=== PATIENT | male | born 1995 | race Caucasian/White ===

== ENCOUNTER → 2019-06-22 13:34 | Outpatient (CLI) | payer BC, SELFPAY | PROVIDERS: Visit Provider Physician Assistant | DX: J02.9 Acute pharyngitis, unspecified (principal) | CPT/HCPCS: 87070; 87077 ==

== ENCOUNTER → 2019-07-30 17:06 | Outpatient (ROUT) | payer BC, SELFPAY ==
[2019-07-30 17:44] LABS: Influenza A - CEPHEID Flu A NEGATIVE (NEGATIVE); Influenza B - CEPHEID Flu B NEGATIVE (NEGATIVE)
== END ==
PROVIDERS: Visit Provider Student in an Organized Health Care Education/Training Program
DX: R05 Cough (principal); R53.83 Other fatigue
CPT/HCPCS: 87502

== ENCOUNTER → 2021-03-15 10:31 | Outpatient (CLI) | payer BC, SELFPAY ==
[2021-03-15 12:15] LABS: COVID19 -Nasal RAPID Negative (Negative)
== END ==
PROVIDERS: Visit Provider Physician Assistant
DX: Z20.822 Contact with and (suspected) exposure to COVID-19 (principal)
CPT/HCPCS: 87635

== ENCOUNTER → 2023-09-17 16:35 | Outpatient (CLI) | payer BC, SELFPAY ==
--- NOTE | 2023-09-17 | DI.RAD.S_ITS ---
PROCEDURE: XR LUMBAR SPINE 2-3V INDICATIONS: CHRONIC LOW BACK PAIN TECHNIQUE: 3 views of the lumbar spine were acquired. COMPARISON: None. FINDINGS: Bones: 5 [id number] vertebrae are present. There is normal bony alignment. No vertebral body compression fractures. No suspicious bony lesions. Soft tissues: Overlying bowel gas pattern is normal. No suspicious soft tissue calcifications. IMPRESSION: No acute compression fracture or spondylolisthesis. No significant degenerative disc disease. Dictated by: Kory Walker M.D. on 09/18/2023 at 10:47 Approved by: Kory Walker M.D. on 09/18/2023 at 10:48
--- NOTE | 2023-09-17 | DI.RAD.S_ITS ---
PROCEDURE: XR PELVIS 1-2V INDICATIONS: lOW BACK PAIN TECHNIQUE: 1 view(s) of the pelvis acquired. COMPARISON: None. FINDINGS: Bones: No fractures or dislocations. No avascular necrosis of femoral head. No suspicious bony lesions. Soft tissues: Visualized bowel gas pattern is normal. No suspicious soft tissue calcifications. IMPRESSION: No acute pelvic fracture or dislocation. No evidence of avascular necrosis of femoral head. Dictated by: Kory Walker M.D. on 09/18/2023 at 10:48 Approved by: Kory Walker M.D. on 09/18/2023 at 10:48
== END ==
PROVIDERS: Referring Provider Chiropractor; Visit Provider Chiropractor
DX: M99.03 Segmental and somatic dysfunction of lumbar region (principal); M99.04 Segmental and somatic dysfunction of sacral region; M99.05 Segmental and somatic dysfunction of pelvic region; M79.18 Myalgia, other site; M54.51 Vertebrogenic low back pain
CPT/HCPCS: 72100; 72170